=== PATIENT | male | born 1995 | race Two or more races ===

== ENCOUNTER 2022-07-15 14:21 | Emergency (ER) | payer MEDICAID, OTHER ==
[~2022-07-15] VITALS: Ht 182.9 cm; Wt 103.1 kg
[2022-07-15 15:07] VITALS: BP 116/70
[2022-07-16] MEDS ORDERED: NALOXONE HCL 1MG/ML 2ML SYRINGE ONE (03:05)
== END 2022-07-15 19:29 | disposition left against medical advice (07) ==
LOC: ER 14:21
DX: M25.531 Pain in right wrist (principal); Z53.21 Procedure and treatment not carried out due to patient leaving prior to being seen by health care provider